=== PATIENT | male | born 1995 | race Caucasian/White ===

== ENCOUNTER 2018-08-22 18:25 | Emergency (ER) | payer OTHER ==
[~2018-08-22] VITALS: Ht 170.2 cm; Wt 70.8 kg
[2018-08-22 18:32] VITALS: Ht 170.2 cm; Wt 70.8 kg
[2018-08-22] MEDS ORDERED: LIDOCAINE 1%/EPI 30 ML INJ INJ STA (18:45)
--- NOTE | 2018-08-22 20:36 | ERD ---
ER Documentation Chief Complaint Chief Complaint FELL OFF 6 FOOT SOBIA, C/O RT SHOULDER PAIN, POSTERIOR HEAD LAC, +KO, DIZZY HPI This is a 22-year-old previously healthy male who is presenting after a head and shoulder injury from a fall off a ladder from about 6 feet. The patient lost his balance and fell. He landed on his right side. He hit his right shoulder and the back of his head. The patient was initially confused, but this resolved very quickly. The patient is currently alert and oriented x3. He has no vision changes. He has no nausea or vomiting. He has no focal deficits. He does endorse a mild occipital headache. He also sustained a laceration to the occiput. The patient has bruising to the right shoulder. He has limited range of motion secondary to pain. The patient denies feeling sick recently. The patient denies fever or chills. The patient does not endorse neck or back pain. The patient denies lightheadedness or dizziness. The patient has had no chest pain or trouble breathing. The patient denies nausea or vomiting. The patient denies abdominal pain. The patient denies changes to bowel movements or urination. The patient has had no weakness or numbness or tingling to the face or extremities. ROS All systems reviewed and are negative except as per history of present illness. Medications Home Meds Active Scripts Ibuprofen* (Motrin*) 600 Mg Tab, 600 MG PO Q6H PRN for PAIN AND/OR INFLAMMATION, #30 TAB Prov:KRYSTIAN ERNANDEZ MD 08/22/18 Discontinued Reported Medications [None] No Conflict Check 04/01/10 Allergies Allergies: Coded Allergies: No Known Allergies (Verified Allergy, Mild, 04/01/10) PMhx/Soc History of Surgery: No Anesthesia Reaction: No Hx Neurological Disorder: No Hx Respiratory Disorders: No Hx Cardiac Disorders: No Hx Psychiatric Problems: No Hx Miscellaneous Medical Probl: No (NO OTHER MEDICAL PROBLEMS) Hx Alcohol Use: No Hx Substance Use: Yes (MARIJUANA) Hx Tobacco Use: Yes (MARIJUANA) Smoking Status: Never smoker FmHx Family History: No diabetes Physical Exam Vitals Vital Signs Date Temp Pulse Resp B/P (MAP) Pulse Ox O2 O2 Flow FiO2 Time Delivery Rate 08/22/18 98.5 74 19 131/85 97 Room Air 20:46 (100) 08/22/18 99.2 79 19 135/82 97 Room Air 18:40 (99) 08/22/18 99.2 99 19 147/84 97 18:32 (105) Physical Exam Const: No apparent distress, well-developed, well-nourished Head: Normocephalic. Angulated occipital laceration, 6 cm in length. Eyes: Normal Conjunctiva. Extraocular movements intact. Pupils equal, round and reactive to light ENT: Normal External Ears, Nose and Mouth. Neck: Full range of motion. No meningismus. Resp: Clear to auscultation bilaterally, No wheezes, rales or rhonchi Cardio: Regular rate and rhythm. No murmurs, rubs or gallops Abd: Soft, non tender, non distended. Normal bowel sounds Skin: No petechiae or rashes Back: No midline tenderness. No CVA tenderness Ext: No cyanosis, or edema. Bruising and tenderness to the right shoulder with limited range of motion secondary to pain. Neur: Awake and alert, oriented 4. Cranial nerves intact. No facial droop. Normal strength, sensation and coordination. Psych: Normal Mood and Affect Results 24 hrs Current Medications Medications Dose Sig/Remedios Start Time Status Last (Trade) Ordered Route PRN Stop Time Admin Dose Reason Admin Lidocaine/ 30 ml ONCE STAT 08/22/18 DC Epinephrine INJ 18:45 (Xylocaine 08/22/18 18:47 1%/ Epi (Pf)) Procedures/MDM MDM The patient's presentation warrants further investigation. Previous medical records, if available, were reviewed. IMAGING Imaging and Radiology interpretation reviewed. XR R Shoulder FINDINGS: Bones: There is an abnormal configuration of the coracoid with a fracture suggested at the base of the coracoid extending into the scapular body. The coracoclavicular space measures 12 mm, which is within the range of normal. Th ere is slight elevation of the distal clavicle relative to the acromion. The acromioclavicular joint with measures 3 mm, which is normal. There is a subtle focal cortical defect of the distal portion of the clavicle near the acromioclavicular joint, which may reflect a nondisplaced fracture. Adjacent ribs are unremarkable. Joint(s): Intact. Soft tissues: Mild soft tissue prominence over the acromioclavicular joint is observed. IMPRESSION: Abnormal configuration of the coracoid with a fracture suggested at the base of the coracoid extending into the scapular body. Recommend further characterization with CT. Possible nondisplaced fracture of the distal portion of the right clavicle near the acromioclavicular joint. No joint dislocation. Imaging findings discussed with ER nurse, at 1943 hours. Electronically viewed and signed by China Jaramillo MD, MD on 08/22/2018 19:51 TREATMENT/DISPOSITION The patient presents after a trauma. The patient was evaluated fully without evidence of emergent posttraumatic pathology. The patient's symptoms are potentially concerning for a concussion, but he is completely alert and oriented at this time. He denies any nausea or vomiting. He denies any loss of consciousness. The patient has no focal deficits. I've low suspicion for intracranial pathology. I have low suspicion for cerebral ischemia or intracranial hemorrhage. The patient does have an occipital laceration that was cleaned and repaired. The patient's last tetanus shot was approximately 3 years ago. The patient has no cervical spine tenderness. He can move his neck in all directions without any pain. As stated above, he does not have any focal deficits. He is not altered or intoxicated. He does not have any distracting injuries. The patient's cervical spine was clinically cleared using the Nexus C- spine rule. The patient does not have any saddle anesthesia. He has not been incontinent of urine or stool. He has not had any retention of urine or stool. I have low suspicion for spinal cord injury. There is no evidence of cardiothoracic or abdominal trauma. The patient also sustained a trauma to the right shoulder. The shoulder x-ray reveals the possibility of both scapular and clavicular fractures. The patient's case was discussed with Dr. Baker, the on-call orthopedic physician. He reviewed the x-rays and felt that this could be managed in an outpatient setting. He recommended that a sling be provided to the patient. I have low suspicion for any additional extremity injury. There is no evidence of any penetrating injuries. PROCEDURE Laceration Repair by me: Anesthesia: 1% lidocaine with epinephrine locally Location: Occipital laceration Tendon/Joint/Nerves: No injury Foreign body: None detected after copious irrigation and exploration Technique: 11 santiago Complexity: No subcutaneous sutures/mucosal repair/edge excision Post Closure Length: 6 cm Patient's bleeding was easily controlled in the department. No evidence of anemia, compartment syndrome, neurologic injury, vascular injury, open joint, tendon laceration, or foreign body. Patient is appropriate for outpatient follow up. 48 hour wound check recommended. Scar minimization instructions given. DISCHARGE Upon reevaluation of the patient, symptoms have improved. No emergent diagnoses were identified. At this time, I feel that the patient stable for discharge. The patient was instructed to follow-up with a primary care physician in 1-3 days. The patient will be given strict precautions with which to return to the emergency department. Prescriptions: Ibuprofen The patient's blood pressure was elevated at greater than 120/80 while in the emergency department. The patient was otherwise stable with no evidence of hypertensive urgency or emergency. The patient does not require admission for blood pressure control. I have discussed with the patient the risks of hypertension. I have instructed the patient to return to the ER for any new or worsening symptoms including chest pain, shortness of breath, headache, blurred vision, confusion, nausea, vomiting or LOC. I have advised the patient to follow up with the primary care physician for outpatient monitoring and treatment for hypertension in 1-3 days. Disclaimer: Inadvertent spelling and grammatical errors are likely due to EHR/dictation software use and do not reflect on the overall quality of patient care. Note that the electronic time recorded on this note does not necessarily reflect the actual time of the patient encounter. Departure Diagnosis: Primary Impression: Head trauma Encounter type: initial encounter Qualified Codes: S09.90XA - Unspecified injury of head, initial encounter Additional Impressions: Fall Encounter type: initial encounter Qualified Codes: W19.XXXA - Unspecified fall, initial encounter Right clavicle fracture Encounter type: initial encounter Clavicle location: lateral end Fracture type: closed Fracture alignment: nondisplaced Qualified Codes: S42.034A - Nondisplaced fracture of lateral end of right clavicle, initial encounter for closed fracture Right scapula fracture Encounter type: initial encounter Scapula location: coracoid process Fracture type: closed Fracture alignment: nondisplaced Qualified Codes: S42.134A - Nondisplaced fracture of coracoid process, right shoulder, initial encounter for closed fracture Occipital scalp laceration Encounter type: initial encounter Qualified Codes: S01.01XA - Laceration without foreign body of scalp, initial encounter Condition: Stable Patient Instructions: Fall, Mechanical, Fracture, Clavicle, Fracture, Shoulder, Head Trauma (Traumatic Brain Injury), Laceration, Scalp Additional Instructions: Thank you for for coming to [facility] [place] for your care today. Please ask your nurse or provider if you have questions about your care today and do not leave until all your questions have been answered. Please use any medications given as directed and follow-up with your doctor (or the doctor you were referred to) in the next 1-3 days. If you do not have a primary care doctor you may follow up at the [facility] or [facility] (listed below). You may also use motrin and tylenol as needed for fever and/or pain unless instructed otherwise by your provider or nurse. Indications for more urgent follow-up have been discussed, but you may return to the Emergency Department at ANY time for any worrisome or worsening symptoms. If you have abdominal pain, please know that no test or exam you received is perfect and you should follow up within 8 hours for continued pain. If you had any imaging studies today, such as an X-Ray or CT Scan, these studies will be reviewed later by a radiologist. You will be called if there are important findings that were not identified today, so make sure the contact information you provided at registration is correct. If you received any narcotic pain control medicine today, such as Vicodin, Morphine or Dilaudid, your coordination and judgment may be affected for a number of hours. Please do not drive or operate heavy machinery, and you may want someone to assist you at home. If you were given a prescription for narcotic medication, be aware that it is very addictive- use sparingly and only if necessary. PLEASE SEEK FURTHER EVALUATION AND MANAGEMENT AT YOUR DOCTORS OFFICE WITHIN THE NEXT 1-3 DAYS. IT IS YOUR RESPONSIBILITY TO MAKE AN APPOINTMENT FOR FOLOW-UP CARE. IF YOU HAVE A PRIMARY DOCTOR, PLEASE CALL THEIR OFFICE TO SCHEDULE AN APPOINTMENT FOR FOLLOW UP. IF YOU DO NOT HAVE A PRIMARY DOCTOR YOU CAN CALL OUR PHYSICIAN REFERRAL HOTLINE AT IF YOU CAN NOT AFFORD TO SEE A PHYSICIAN YOU CAN CHOSE FROM THE FOLLOWING [facility]: [facility] [address] [facility] [address] [facility] [address] [facility] [address] [facility] [address] [facility]. [facility]. [address] KRYSTIAN TAVERAS MD Aug 22, 2018 20:36
[2018-08-22] MEDS ORDERED: IBUP-1542 PO (20:37)
[2018-08-22 20:46] VITALS: BP 131/85; PULSE 74; RESP 19
== END 2018-08-22 20:58 | disposition home or self-care (01) ==
LOC: E/R 18:25
DX: S42.034A Nondisplaced fracture of lateral end of right clavicle, initial encounter for closed fracture (principal); S01.01XA Laceration without foreign body of scalp, initial encounter; S42.134A Nondisplaced fracture of coracoid process, right shoulder, initial encounter for closed fracture; W11.XXXA Fall on and from ladder, initial encounter; Y92.9 Unspecified place or not applicable
CPT/HCPCS: 12002; 73030; Z7502; Z7610